=== PATIENT | female | born 1990 | race Caucasian/White ===

== ENCOUNTER 2018-12-15 19:51 | Emergency (ER) | payer MEDICAID ==
[~2018-12-15] VITALS: Ht 162.6 cm; Wt 97.5 kg
[~2018-12-15 19:51] MED LIST: IBUP-81
[2018-12-15 19:57] VITALS: BP 140/76
--- NOTE | 2018-12-15 20:06 | NUR ---
PT WAS WHEEL CHAIRED TO THE RESTROOM
--- NOTE | 2018-12-15 20:09 | NUR ---
PT WENT BACK TO LOBBY, DAVI
--- NOTE | 2018-12-15 21:55 | NUR ---
PT TAKEN TO BED 05 BY WHEELCHAIR.
--- NOTE | 2018-12-15 22:04 | NUR ---
28/F PRESENTS TO ED WITH SISTER, C/O 06/07 R GREATER THAN L LOWER BACK PAIN, RADIATING TO SUPRAPUBIC/LOWER ABD, TENDER TO TOUCH, SINCE THIS AM. REPORTS TAKING ADVIL WITHOUT RELIEF. PT DENIES TRAUMA. AOX4, GCS 15, RR EVEN AND UNLABORED. HX PRE-DM
[2018-12-15] MEDS ORDERED: KETOROLAC 30 MG/ML VIAL IM ONE (22:30)
[2018-12-15] MEDS ORDERED: DIAZEPAM 5 MG TAB PO ONE (22:30)
--- NOTE | 2018-12-15 22:42 | NUR ---
PT TAKEN TO XRAY
[2018-12-15] MEDS ORDERED: HYDROcodone/APAP 5/325 MG 1 TAB TAB PO ONE (23:40)
--- NOTE | 2018-12-15 23:50 | NUR ---
PT C/O 03/07 HEADACHE AND BACK PAIN AFTER MEDS. PT GIVEN NORCO PO BY PAINT SPRAY INSPECTOR. ALL NEEDS MET AT THIS TIME.
[2018-12-16 00:21] VITALS: BP 128/85
--- NOTE | 2018-12-16 00:21 | NUR ---
Patient discharged with v/s stable. Written and verbal after care instructions given and explained. Patient alert, oriented and verbalized understanding of instructions. Ambulatory with steady gait. All questions addressed prior to discharge. ID band removed. Patient advised to follow up with PMD. Rx of NAPROSYN 500MG AND VALIUM 5MG given. Patient educated on indication of medication including possible reaction and side effects. Opportunity to ask questions provided and answered.
== END 2018-12-16 00:21 | disposition home or self-care (01) ==
LOC: MED 19:51
DX: S39.012A Strain of muscle, fascia and tendon of lower back, initial encounter (principal); M54.41 Lumbago with sciatica, right side; E11.9 Type 2 diabetes mellitus without complications; Z79.1 Long term (current) use of non-steroidal anti-inflammatories (NSAID); X58.XXXA Exposure to other specified factors, initial encounter; Y93.89 Activity, other specified; Y92.89 Other specified places as the place of occurrence of the external cause; Y99.8 Other external cause status
CPT/HCPCS: 72100; 81002; 81025; 96372; 99283; J1885

== ENCOUNTER 2021-06-06 10:16 | Emergency (ER) | payer MEDICAID, SELFPAY ==
[~2021-06-06] VITALS: Ht 157.5 cm; Wt 79.4 kg
[2021-06-06 11:02] VITALS: BP 120/69
[2021-06-06] MEDS ORDERED: NACL 0.9% 1,000 ML IV ONE (11:15)
--- NOTE | 2021-06-06 11:30 | NUR ---
XRAY BEDSIDE WITH PT
--- NOTE | 2021-06-06 12:00 | NUR ---
31/F C/O COUGH, SOB AND INTERMITTENT CHEST PAIN X3 DAYS. PT STATES PAIN FEELS LIKE A PRESSURE ON HER CHEST, BUT IS NON-RADIAITNG. PT ALSO C/O OSORIO ALONG WITH BLURRED VISION, BUT DENIES ANY LIGHTHEADESS/DIZZINESS. REPORTS TAKING ADVIL AT HOME YESTERDAY WITH SOME RELIEF. DENIES CHEST PAIN AT THIS TIME. MEDHX: HTN, DM ALLERGIES: DENIES
[2021-06-06] MEDS ORDERED: REGENERON ANTIBODY ER ORDER 1 EA MISC MC ONE (12:05)
[2021-06-06] MEDS ORDERED: KETOROLAC 30 MG/ML VIAL IVP ONE (12:05)
[2021-06-06] MEDS ORDERED: REGENERON ANTIBODY ER ORDER 1 EA MISC MC SCH (12:27)
--- NOTE | 2021-06-06 12:56 | NUR ---
ELLYN CLEMENTS AND ELLYN BOO TAKEN BEDSIDE AND WALKED OVER TO LAB
--- NOTE | 2021-06-06 13:02 | NUR ---
PT PROVIDED [facility] BEDSIDE.
--- NOTE | 2021-06-06 13:09 | NUR ---
PT ON SALES PLANNER AND PT VITAL SIGNS STABLE. BED IN LOWEST POSITION WITH SIDERAIL X1 UP. PT STATED PAIN RELIEF FROM SHOT. WILL CONTINUE TO MONITOR
[2021-06-06] MEDS ORDERED: PRED20TA5 PO (13:22)
[2021-06-06] MEDS ORDERED: IBUP-2213 PO (13:22)
[2021-06-06] MEDS ORDERED: NON-FORMULARY ITEM 1 EA in NACL 0.9% 100 ML IV SCH (15:00)
--- NOTE | 2021-06-06 15:57 | NUR ---
pt regeron has finished. vital signs have been taken and are stable (see chart). will monitor for next hour
[2021-06-06 17:03] VITALS: BP 120/72
--- NOTE | 2021-06-06 17:03 | NUR ---
Patient discharged with v/s stable. Written and verbal after care instructions given and explained. Patient alert, oriented and verbalized understanding of instructions. Ambulatory with steady gait. All questions addressed prior to discharge. ID band removed. Patient advised to follow up with PMD. Rx of IBUPROFEN AND PREDNISONE given. Patient educated on indication of medication including possible reaction and side effects. Opportunity to ask questions provided and answered.
== END 2021-06-06 17:03 | disposition home or self-care (01) ==
LOC: MED 10:16
DX: U07.1 COVID-19 (principal); E11.9 Type 2 diabetes mellitus without complications; I10 Essential (primary) hypertension; Z79.1 Long term (current) use of non-steroidal anti-inflammatories (NSAID); Z79.899 Other long term (current) drug therapy
CPT/HCPCS: 71045; 87426; 96361; 96374; 99285; J1885; J7030; U0003; Q0092

== ENCOUNTER 2022-05-10 14:31 | Emergency (ER) | payer MEDICAID ==
[~2022-05-10] VITALS: Ht 160 cm; Wt 65.3 kg
[~2022-05-10 14:31] MED LIST changes: +IBUP-2213 PO; +PRED20TA5 PO
[2022-05-10 14:54] VITALS: BP 139/90
--- NOTE | 2022-05-10 15:06 | NUR ---
SWABS HANDED TO REAL ESTATE DEVELOPMENT MANAGER RICARDO
--- NOTE | 2022-05-10 15:19 | NUR ---
NATALIE CARNEY AT TRIAGE FOR EVAL
--- NOTE | 2022-05-10 15:24 | NUR ---
32 Y/O FEMALE BIB SELF C/O OF SORE THROAT, OSORIO X 3 DAYS. NKVon PMH: DM
[2022-05-10] MEDS ORDERED: ACET-10509 PO (15:47)
[2022-05-10] MEDS ORDERED: NIRM1TAB PO (15:47)
--- NOTE | 2022-05-10 16:57 | NUR ---
Patient discharged with v/s stable. Written and verbal after care instructions given and explained. Patient alert, oriented and verbalized understanding of instructions. Ambulatory with steady gait. All questions addressed prior to discharge. ID band removed. Patient advised to follow up with PMD. Rx of TYLENOL, PAXLOVID given. Patient educated on indication of medication including possible reaction and side effects. Opportunity to ask questions provided and answered.
--- NOTE | 2022-05-10 16:57 | NUR ---
Note undbenjie in EDM - 05/10/22 at 1739 by BEVERLY Patient discharged with v/s stable. Written and verbal after care instructions ABOUT STREPA AND PHARYNGITIS given and explained to parent/guardian. Parent/Guardian verbalized understanding of instructions. Ambulatory with steady gait. All questions addressed prior to discharge. ID band removed. Parent/Guardian advised to follow up with PMD. Rx of AMOXICILLIN, CHILDREN'S IBUPROFEN given. Parent/Guardian educated on indication of medication including possible reaction and side effects. Opportunity to ask questions provided and answered.
[2022-05-10 17:35] VITALS: BP 127/74
== END 2022-05-10 16:57 | disposition home or self-care (01) ==
LOC: MED 14:31
DX: U07.1 COVID-19 (principal); E11.9 Type 2 diabetes mellitus without complications; I10 Essential (primary) hypertension; Z79.899 Other long term (current) drug therapy
CPT/HCPCS: 99283

== ENCOUNTER 2022-05-13 18:43 | Emergency (ER) | payer MEDICAID ==
[~2022-05-13] VITALS: Ht 160 cm; Wt 78.5 kg
[~2022-05-13 18:43] MED LIST changes: +ACET-10509 PO; +NIRM1TAB PO
[2022-05-13 19:35] VITALS: BP 144/90
--- NOTE | 2022-05-13 19:38 | NUR ---
TO LOBBY A/W BED AMBULATORY
--- NOTE | 2022-05-13 20:45 | NUR ---
PT TAKEN TO BED 3
[2022-05-13] MEDS ORDERED: NAPR-1704 PO (20:50)
[2022-05-13] MEDS ORDERED: KETOROLAC 30 MG/ML VIAL IM ONE (20:50)
--- NOTE | 2022-05-13 20:55 | NUR ---
er md at bedside examining pt
--- NOTE | 2022-05-13 21:10 | NUR ---
32 y/o female bibs from home, c/o right hip pain radiating down right leg x1 day. pt stats she has hx of same and was dx w/ sciatica. pain is 9/10. a/ox4; unlabored breathing; ambulatory w/o assistance. denies trauma, no bruising or redness. hx:dm, sciatica nka
[2022-05-13 21:23] VITALS: BP 138/88
--- NOTE | 2022-05-13 21:25 | NUR ---
Patient discharged with v/s stable. Written and verbal after care instructions given and explained. Patient alert, oriented and verbalized understanding of instructions. Ambulatory with steady gait. All questions addressed prior to discharge. ID band removed. Patient advised to follow up with PMD. Rx of NAPROSYN given. Patient educated on indication of medication including possible reaction and side effects. Opportunity to ask questions provided and answered. VSS, A/OX4, AMBULATORY, UNLABORED BREATHING, AND CALM DEMEANOR.
== END 2022-05-13 21:25 | disposition home or self-care (01) ==
LOC: MED 18:43
DX: S39.012A Strain of muscle, fascia and tendon of lower back, initial encounter (principal); I10 Essential (primary) hypertension; E11.9 Type 2 diabetes mellitus without complications; Z79.4 Long term (current) use of insulin; Z79.899 Other long term (current) drug therapy; X58.XXXA Exposure to other specified factors, initial encounter; Y93.89 Activity, other specified; Y92.89 Other specified places as the place of occurrence of the external cause; Y99.8 Other external cause status
CPT/HCPCS: 72100; 81002; 81025; 96372; 99283; J1885

== ENCOUNTER 2022-11-05 10:05 | Emergency (ER) | payer MEDICAID ==
[~2022-11-05] VITALS: Ht 156.2 cm; Wt 82.6 kg
[~2022-11-05 10:05] MED LIST changes: +NAPR-1704 PO
--- NOTE | 2022-11-05 10:10 | NUR ---
AMBULATED TO ER BED 1
[2022-11-05 10:15] VITALS: BP 143/79
[2022-11-05 10:19] VITALS: BP 143/79
--- NOTE | 2022-11-05 10:30 | NUR ---
ASSUMED PATIENT CARE, NURSING ASSESSMENT COMPLETED. DR CUEVA AT BEDSIDE, MSE COMPLETED.
[2022-11-05] MEDS ORDERED: HYPR15DR5 OP (10:41)
[2022-11-05] MEDS ORDERED: VALA1TAB40 PO (10:41)
[2022-11-05] MEDS ORDERED: PRED20TA5 PO (10:41)
[2022-11-05] MEDS ORDERED: LANO1OIN26 LEFT EYE (10:41)
[2022-11-05 11:01] VITALS: BP 143/79
--- NOTE | 2022-11-05 11:01 | NUR ---
DISPO AND MEDICAL DECISION MAKING, DC HOME WITH AFTERCARE INSTRUCTIONS, E-RX. PATIENT ACKNOWLEDGING UNDERSTANDING, VERBALIZING RELIEF FROM SYMPTOMS. VS WNL. NO DISTRESS.
== END 2022-11-05 11:01 | disposition home or self-care (01) ==
LOC: MED 10:05
DX: R29.810 Facial weakness (principal); G51.0 Bell's palsy; E11.9 Type 2 diabetes mellitus without complications; I10 Essential (primary) hypertension; Z79.899 Other long term (current) drug therapy
CPT/HCPCS: 93005; 99283

== ENCOUNTER 2023-05-21 20:58 | Emergency (ER) | payer MEDICAID ==
[~2023-05-21] VITALS: Ht 154.9 cm; Wt 79.9 kg
[~2023-05-21 20:58] MED LIST changes: +HYPR15DR5 OP; +LANO1OIN26 LEFT EYE; +VALA1TAB40 PO
[2023-05-21 21:15] VITALS: BP 140/82; PULSE 87; RESP 18; TEMP 98.8; O2SAT 97
[2023-05-22 00:21] LABS: FLU A ANTIGEN negative (NEGATIVE); FLU B ANTIGEN NEGATIVE (NEGATIVE)
[2023-05-22] MEDS ORDERED: NIRM1TAB5 PO (00:36)
== END 2023-05-22 00:49 | disposition home or self-care (01) ==
LOC: MED 20:58
DX: U07.1 COVID-19 (principal); J06.9 Acute upper respiratory infection, unspecified; E11.9 Type 2 diabetes mellitus without complications; I10 Essential (primary) hypertension; Z79.899 Other long term (current) drug therapy
CPT/HCPCS: 99283